=== PATIENT | male | born 1960 | race Caucasian/White ===

== ENCOUNTER → 2016-12-10 | Outpatient (CLI) | payer OTHER ==
[~2016-12-10] MED LIST: ASPCH81X PO; HYDR-5688 PO
== END | disposition home or self-care (01) ==
LOC: C.CPL 14:38
PROVIDERS: ATTEND Orthopaedic Surgery
DX: S83.241A Other tear of medial meniscus, current injury, right knee, initial encounter (principal); X58.XXXA Exposure to other specified factors, initial encounter; R00.1 Bradycardia, unspecified

== ENCOUNTER → 2016-12-16 | Day surgery (SDC) | payer OTHER ==
[2016-12-12 09:11] VITALS: Ht 188 cm; Wt 90.9 kg
[~2016-12-16] VITALS: Ht 188 cm; Wt 90.9 kg
[~2016-12-16] MED LIST changes: +ATROPINE SULFATE 0.1 MG/ML 5ML SYR IV PRN; +BUPIVACAINE 0.5 % 5 MG/1 ML PF 10ML VIAL ONE; +CEFAZOLIN 2000 MG/60 ML D5W IV SCH; +DEXAMETHASONE SOD INJ 4 MG/ML VIAL ONE; +EpINEphrine INJ 1MG/ML AMP 1 MG/ML AMP ONE; +FENTANYL CITRATE INJ 50 MCG/1 ML 2 ML VIAL IV PRN; +FENTANYL CITRATE INJ 50 MCG/1 ML 2 ML VIAL ONE; +KETOROLAC TROMETHAMINE 30 MG/ML VIAL IV. PRN; +KETOROLAC TROMETHAMINE 30 MG/ML VIAL ONE; +LABETALOL HCL IV 5 MG/ML 20ML IV PRN; +LACTATED RINGER'S 1000ML 1,000 ML IV SCH; +LIDOCAINE HCL 2% 2 ML VIAL (20MG/ML) ONE; +MIDAZOLAM HCL 1 MG/ML 2ML VIAL ONE; +ONDANSETRON INJ 2 MG/ML 2 ML VIAL IV PRN; +ONDANSETRON INJ 2 MG/ML 2 ML VIAL ONE; +OXYCODONE/ACETAMINOPHEN 5-325 TAB PO PRN; +PROPOFOL IV EMULSION 10 MG/ML 20 ML VIAL IV ONE; +ROPIVACAINE 0.5% 5 MG/ML 30 ML VIAL ONE; +SODIUM CHLORIDE 0.9% 1000ML 1,000 ML IV SCH
--- NOTE | 2016-12-16 09:51 | History & Physical Bridge - SC ---
H&P Re-Evaluation Bridge Note: I have examined the patient, reviewed the History & Physical and in the interval since the performance of the History & Physical I have noted the following changes of clinical significance: No changes noted
--- NOTE | 2016-12-16 11:07 | [facility] Post Operative Brief Note ---
Immediate Operative Summary Operative Date Dec 16, 2016. Pre-Operative Diagnosis Left Knee Medial Meniscal Tear Post-Operative Diagnosis Same Procedure(s) Performed Left Knee Arthroscopy, Partial Medial Meniscectomy Surgeon Dr. Hickman Sales Representative [employer] Surgeon(s) Jorge Smith PA-C Estimated Blood Loss None Findings ABOVE Specimens None Anesthesia LMA Complication(s) None Disposition Recovery Room / PACU
--- NOTE | 2016-12-16 11:21 | Discharge Instructions-SurgCtr ---
Discharge Instructions Date of Service Dec 16, 2016. Visit Reason for Visit: Left Knee Acute Medial Meniscal Tear, Pain Discharge Discharge Diagnosis / Problem: SAME ABOVE Discharge Goals Goal(s): Decrease discomfort, Improve function Medications Stopped Medications Name(s): ASA 81mg stopped 12/09 Activity Recommendations Activity Limitations: as noted below Lifting Limitations: gradually increase as tolerated Exercise/Sports Limitations: until after follow-up appointment Shower/Bathe: tomorrow Weightbearing Status: Left weightbearing (as tolerated) Anesthesia . Post Anesthesia Instructions: If you have had General Anesthesia or IV Sedation: * Do not drive today. * Resume driving when surgeon permits. * Do not make important decisions or sign legal documents today. * Call surgeon for: 1. Temperature elevations greater than 101 degrees F. 2. Uncontrollable pain. 3. Excessive bleeding. 4. Persistent nausea and vomiting. 5. Medication intolerance (nausea, vomiting or rash). * For nausea and vomiting use only clear liquids such as: tea, soda, bouillon until nausea subsides, then gradually increase diet as tolerated. * If you have any concerns or questions, call your surgeon's office. If physician is unavailable and it is an emergency, call 911 or go to the nearest emergency room. . Diet Recommendations Home Diet: resume previous diet Procedures Procedures Performed: Left Knee Arthroscopy, Partial Medial Meniscectomy Pending Studies Studies pending at discharge: no Medical Emergencies . Who to Call and When: Medical Emergencies: If at any time you feel your situation is an emergency, please call 911 immediately. . Non-Emergent Contact Non-Emergency issues call your: Primary Care Provider . . "Provider Documentation" section prepared by Albino Smith.
[2016-12-16 12:07] VITALS: TEMP 36.5
[2016-12-16 12:27] VITALS: BP 131/81; PULSE 60; O2SAT 98
--- NOTE | 2016-12-16 12:31 | OPERATIVE REPORT ---
DATE OF OPERATION: 12/16/2016 PREOPERATIVE DIAGNOSIS: Posterior horn medial meniscus tear left knee. POSTOPERATIVE DIAGNOSES: Complex tear posterior horn medial meniscus, left knee. PROCEDURE: Left knee arthroscopy, partial medial meniscectomy. SURGEON: Dr. Hickman. JEWELRY STORE MANAGER: Albino Smith PA-C. ANESTHESIOLOGIST: Dr. Tena. ANESTHESIA: LMA. DRAINS: None. COMPLICATIONS: None. CONDITION: The patient tolerated the procedure well and returned to recovery room in apparent satisfactory condition. INDICATIONS FOR SURGERY: Michele is a 56-year-old male who injured his knee 6 weeks back. He has had pain and discomfort off and on. MRI, physical exam and history are consistent with medial meniscus tear and elected to go ahead and proceed with surgery. Procedure, expected outcomes and side effects were all explained in detail. PROCEDURE: The patient was taken to the OR at which time he was placed supine on the operating table, put to sleep by the anesthesia department. Examination of left knee was performed. Ligamentous bourgeois it was stable. Went ahead and prepped and draped in usual sterile fashion. Began arthroscopic examination in the anteromedial and anterolateral portals. We found a complex tear of the posterior horn of the medial meniscus. We came in with upbiting scissors and full radius resector and trimmed it back to a stable rim. There were some slight changes on the articular surface. ACL, lateral compartment were fine. The patellofemoral joint had a little bit of synovitis but the remaining part articular surface here looked good. The knee then was copiously irrigated. All cannulas were removed. Portals were closed with 4-0 nylon sutures. Ropivacaine 30 mL, 10 mg of Toradol, 1 mL epinephrine was placed in the knee joint. Placed a sterile dressing of Xeroform, ABD, Sof-Rol, and Ankush bandage and returned back to recovery room in apparent satisfactory condition. SURGICAL FINDINGS: Include a complex tear of the posterior horn of the medial meniscus. I attest to the content of the Intraoperative Record and any orders documented therein. Any exceptio ns are noted below.
--- NOTE | 2016-12-16 12:32 | Anesthesia Progress Nt - [facility] ---
Anesthesia Post Op Note Date & Time Dec 16, 2016 at 12:32 Vital Signs Pain Intensity: 2 Vital Signs Past 12 Hours Date Time Temp Pulse Resp B/P Pulse Ox O2 Delivery O2 Flow Rate FiO2 12/16/16 12:27 60 16 131/81 98 Room Air 12/16/16 12:07 36.5 53 16 117/72 97 Room Air 12/16/16 12:00 119/74 12/16/16 11:57 60 9 12/16/16 11:57 60 9 95 12/16/16 11:56 63 10 12/16/16 11:56 63 10 95 12/16/16 11:55 36.6 59 12 112/77 96 Room Air 12/16/16 11:55 112/77 12/16/16 11:51 61 1 95 12/16/16 11:51 64 1 12/16/16 11:50 115/74 12/16/16 11:46 60 18 12/16/16 11:46 61 18 96 12/16/16 11:45 116/72 12/16/16 11:41 55 12 100 12/16/16 11:41 56 12 12/16/16 11:40 112/74 12/16/16 11:36 58 9 98 12/16/16 11:36 57 9 12/16/16 11:35 116/75 12/16/16 11:31 60 13 100 12/16/16 11:31 60 13 12/16/16 11:30 110/75 12/16/16 11:26 63 12 12/16/16 11:26 63 12 100 12/16/16 11:25 111/76 12/16/16 11:21 61 11 99 12/16/16 11:21 61 11 12/16/16 11:20 118/76 12/16/16 11:16 64 4 12/16/16 11:16 36.6 67 16 116/69 98 Mask 8 12/16/16 11:16 63 4 116/69 98 12/16/16 09:53 36.5 77 18 136/87 96 Room Air Notes Mental Status: alert / awake / arousable, participated in evaluation Pt Amnestic to Procedure: Yes Nausea / Vomiting: adequately controlled Pain: adequately controlled Airway Patency, RR, SpO2: stable & adequate BP & HR: stable & adequate Hydration State: stable & adequate Anesthetic Complications: no major complications apparent
== END | disposition home or self-care (01) ==
LOC: X.SURG 08:43
PROVIDERS: ATTEND Orthopaedic Surgery
DX: S83.232A Complex tear of medial meniscus, current injury, left knee, initial encounter (principal); X58.XXXA Exposure to other specified factors, initial encounter

== ENCOUNTER 2017-05-08 10:07 | Emergency (ER) | payer OTHER ==
[~2017-05-08] VITALS: Ht 188 cm; Wt 94.2 kg
[~2017-05-08 10:07] MED LIST changes: -ATROPINE SULFATE 0.1 MG/ML 5ML SYR IV PRN; -BUPIVACAINE 0.5 % 5 MG/1 ML PF 10ML VIAL ONE; -CEFAZOLIN 2000 MG/60 ML D5W IV SCH; -DEXAMETHASONE SOD INJ 4 MG/ML VIAL ONE; -EpINEphrine INJ 1MG/ML AMP 1 MG/ML AMP ONE; -FENTANYL CITRATE INJ 50 MCG/1 ML 2 ML VIAL IV PRN; -FENTANYL CITRATE INJ 50 MCG/1 ML 2 ML VIAL ONE; -KETOROLAC TROMETHAMINE 30 MG/ML VIAL IV. PRN; -KETOROLAC TROMETHAMINE 30 MG/ML VIAL ONE; -LABETALOL HCL IV 5 MG/ML 20ML IV PRN; -LACTATED RINGER'S 1000ML 1,000 ML IV SCH; -LIDOCAINE HCL 2% 2 ML VIAL (20MG/ML) ONE; -MIDAZOLAM HCL 1 MG/ML 2ML VIAL ONE; -ONDANSETRON INJ 2 MG/ML 2 ML VIAL IV PRN; -ONDANSETRON INJ 2 MG/ML 2 ML VIAL ONE; -OXYCODONE/ACETAMINOPHEN 5-325 TAB PO PRN; -PROPOFOL IV EMULSION 10 MG/ML 20 ML VIAL IV ONE; -ROPIVACAINE 0.5% 5 MG/ML 30 ML VIAL ONE; -SODIUM CHLORIDE 0.9% 1000ML 1,000 ML IV SCH
[2017-05-08 10:10] VITALS: TEMP 36.9; Ht 188 cm; Wt 94.2 kg
[2017-05-08 10:51] LABS: URINE APPEARANCE CLEAR (CLEAR); URINE BILIRUBIN NEG (NEG); URINE COLOR YELLOW; URINE NITRITE NEG (NEG); URINE PH 5.5 (4.5-7.5); URINE SPECIFIC GRAVITY 1.021 (1.000-1.030); UROBILINOGEN NEG (NEG)
[2017-05-08 10:56] LABS: MANUAL MICROSCOPIC REQUIRED? NO; REVIEW REQ? NO
[2017-05-08] MEDS ORDERED: SODIUM CHLORIDE 0.9% 1000ML 1,000 ML IV STA (10:56)
[2017-05-08 11:02] LABS: BASO % 1.1 %; BASO ABS # 0.04 K/uL (0-0.2); COMPLETE YES; EOS % 1.4 %; HEMATOCRIT 41.5 % (42-52); LYMPH % 38.5 %; LYMPH ABS # 1.36 K/uL (1.2-3.4); MEAN CELL VOLUME 87.6 fL (80-100); MEAN CORPUSCULAR HEMOGLOBIN 29.3 pg (25-34); MEAN CORPUSCULAR HGB CONC 33.5 g/dl (32-36); PLATELET COUNT 199 K/uL (130-400); RED BLOOD COUNT 4.74 M/uL (4.7-6.1); WHITE BLOOD COUNT 3.53 K/uL (4.8-10.8)
[2017-05-08] MEDS ORDERED: OPTIRAY 320 IV PRN (11:15)
[2017-05-08 11:17] LABS: BUN/CREATININE RATIO 13.7 (10-20); CALCIUM 8.4 mg/dl (8.5-10.1); CREATININE 0.91 mg/dl (0.60-1.40); POTASSIUM 3.8 mmol/L (3.5-5.1)
[2017-05-08 12:25] LABS: LYME DISEASE AB IGG NEG (NEG); LYME DISEASE AB IGM NEG (NEG)
[2017-05-08] MEDS ORDERED: CHOLESTYRAMINE LIGHT 4 GM PKT PO STA (14:38)
--- NOTE | 2017-05-08 14:44 | DIAGNOSTIC IMAGING REPORT ---
ABD/PELVIS IV AND ORAL CONT CT DOSE: 907.12 mGycm HISTORY: Nausea. Bowel change. FINDINGS: nodular pleural-based focus versus focal atelectasis posterior right gastric angle. Lung bases otherwise are clear. Liver spleen and pancreas are uniform. Gallbladder is negative for distention. Kidneys enhance uniformly. 1.5 cm lower pole left renal cyst. There is no evidence for hydronephrosis. The bowel pattern is considered nonobstructive. There is no significant wall thickening. There are no pericolonic infiltrative changes. The appendix is normal. There are no small bowel obstructive changes. There is no significant abdominal pelvic or inguinal adenopathy. Pt c/o diffuse diarrhea TECHNIQUE: Multiaxial CT images of the abdomen and pelvis were performed following the use of intravenous and oral contrast. A dose lowering technique was utilized adhering to the principles of ALARA. COMPARISON STUDY: None. IMPRESSION: 1. 11 mm nodular density right posterior gastric angle versus round atelectasis. 2. Small left renal cyst. 3. Study is otherwise negative. Please refer to below summary of Fleischner criteria recommendations for follow-up of incidental CT nodules (Michael Bell, Guidelines for management of small pulmonary nodules detected on CT scans: A statement from the Fleischner Society, Radiology 237: [phone].) SOLID NODULES Solitary nodule size: <6 mm * low risk patients: no follow-up needed * high risk patients: optional CT at 12 months Solitary nodule size: 6-8 mm * low risk patients: follow-up at 6-12 months, then consider further follow-up at 18-24 months * high risk patients: initial follow-up CT at 6-12 months and then at 18-24 months if no change Solitary nodule size: >8 mm * either low or high risk patients - consider follow-up CT at 3 months, and/or CT-PET, and/or biopsy Multiple nodules size: <6 mm * low risk patients: no routine follow-up * high risk patients: optional CT at 12 months Multiple nodules size: 6-8 mm * low risk patients: follow-up at 3-6 months, then consider further follow-up at 18-24 months * high risk patients: follow-up at 3-6 months, then at 18-24 months if no change Multiple nodules size: >8 mm * low risk patients: follow-up at 3-6 months, then consider further follow-up at 18-24 months * high risk patients: follow-up at 3-6 months, then at 18-24 months if no change Note: newly detected indeterminate nodule in persons 35 years of age or older. * Low risk patients: minimal or absent history of smoking and/or other known risk factors * high risk patients: history of smoking or of other known risk factors (e.g. first degree relative with lung cancer, or exposure to asbestos, radon, uranium) * if a nodule up to 8 mm is partly solid or is ground glass further follow-up is required after 24 months to exclude possible slow growing adenocarcinoma (SAM) SUBSOIL NODULES Solitary pure ground-glass nodule * nodule size <6 mm - no CT follow-up required * nodule size >=6 mm - follow-up CT at 6-12 months, then every 2 years until 5 years Solitary part-solid nodule * nodule size <6 mm - no CT follow-up required * nodule size >=6 mm - follow-up CT at 3-6 months. If unchanged, and solid component remains <6 mm, then annual follow-up for 5 years Multiple subsolid nodules * nodule size <6 mm - follow-up CT at 3-6 months, consider further follow-up at 2 and 4 years if stable * nodule size >=6 mm - follow-up CT at 3-6 months, subsequent management based on the most suspicious nodule(s) The above report was generated using voice recognition software. It may contain grammatical, syntax or spelling errors. Electronically signed by: Sumit Rosa M.D. 05/08/2017 2:43 PM Dictated Date/Time: 05/08/2017 2:37 PM
[2017-05-08 14:57] VITALS: BP 136/84; PULSE 55; O2SAT 99
--- NOTE | 2017-05-12 01:23 | EMERGENCY ROOM VISIT NOTE ---
History Report prepared by Yolanda: Kelsi Page Under the Supervision of: Dr. Brendon Saenz M.D. First contact with patient: 10:19 Chief Complaint: GI ASSESSMENT Stated Complaint: INTESTINAL PAIN/BLOATING, WT LOSS 15 X 3 WEEKS Nursing Triage Summary: stomach issues for 3 weeks loss of 15 pounds saw pcp, no answers pt has had diarrhea pt has gas, indigestion nausea History of Present Illness The patient is a 56 year old male who presents to the Emergency Room with complaints of constant diarrhea for the past 3 weeks. He has been having diarrhea every 2 hours. For the last 3 days, he has mostly been passing a yellow /edmonds mucous. He has seen his PCP and had stool testing and blood work 2 times. He was also tested for Giardia. He reports abdominal bloating and pain. His pain increases when he eats and when he lays on his left side. He has had a decreased appetite. He notes that he has lost 15 lbs in 3 weeks. He has had increased thirst recently and has been drinking a gallon of water a day. He denies any vomiting, blood in his stool, cough, tachycardia, or dysuria. He notes that his symptoms began after he went camping. He and his ate and drank all the same foods. She has not had any symptoms. He notes that his 2 sisters have recently passed from GI related cancers. He still has his gallbladder. He does not smoke. He denies any recent antibiotic use. He denies any chronic medical problems besides low back pain. He denies any alcohol use for the last 3 weeks. He had a colonoscopy last year and an endoscopy. He is scheduled to get a colonoscopy every 3 years. Source of History: patient Onset: 3 weeks Position: other (global) Quality: other (diarrhea) Timing: constant Associated Symptoms: + abdominal pain, No cough, No vomiting, No hematochezia, No urinary symptoms Note: Pt reports decreased appetite, weight loss, increased thirst. Pt denies tachycardia. Review of Systems See HPI for pertinent positives & negatives. A total of 10 systems reviewed and were otherwise negative. Past Medical & Surgical Medical Problems: (1) Lactose intolerance Family History Cancer Social History Smoking Status: Never Smoker Marital Status: Housing Status: lives with family Occupation Status: employed Current/Historical Medications No Active Prescriptions or Reported Meds Allergies Coded Allergies: BEE STING (Verified Allergy, Mild, SWEATING AND LIGHTHEADED, 05/08/17) NO KNOWN DRUG ALLERGIES (Verified Allergy, Unknown, ., 05/08/17) Physical Exam Vital Signs Date Time Temp Pulse Resp B/P (MAP) Pulse Ox O2 Delivery O2 Flow Rate FiO2 05/08/17 14:57 55 20 136/84 99 Room Air 05/08/17 13:52 46 20 119/83 98 Room Air 05/08/17 11:11 53 20 119/77 96 Room Air 05/08/17 10:10 36.9 66 20 127/84 97 Room Air Physical Exam GENERAL: Patient is a healthy-appearing well-nourished male HEAD: Normocephalic atraumatic EYES: Ocular movements intact pupils equal and react to light OROPHARYNX mucous membranes are moist no exudates present no erythema or edema present NECK: Supple no nuchal rigidity CHEST: Good equal expansion LUNGS: Clear and equal to auscultation CARDIAC: Normal S1 and S2 ABDOMEN: Soft nontender no guarding BACK: No CVA tenderness EXTREMITIES: No pain upon palpation normal muscle strength in all groups no clubbing cyanosis or edema NEURO: Patient is following commands and answering questions appropriately. Alert and oriented x3 Cranial Nerves 2-12 grossly intact Medical Decision & Procedures ER Provider Diagnostic Interpretation: Radiology results as stated below per my review and radiologist interpretation: ABD/PELVIS IV AND ORAL CONT CT DOSE: 907.12 mGycm HISTORY: Nausea. Bowel change. FINDINGS: nodular pleural-based focus versus focal atelectasis posterior right gastric angle. Lung bases otherwise are clear. Liver spleen and pancreas are uniform. Gallbladder is negative for distention. Kidneys enhance uniformly. 1.5 cm lower pole left renal cyst. There is no evidence for hydronephrosis. The bowel pattern is considered nonobstructive. There is no significant wall thickening. There are no pericolonic infiltrative changes. The appendix is normal. There are no small bowel obstructive changes. There is no significant abdominal pelvic or inguinal adenopathy. Pt c/o diffuse diarrhea TECHNIQUE: Multiaxial CT images of the abdomen and pelvis were performed following the use of intravenous and oral contrast. A dose lowering technique was utilized adhering to the principles of ALARA. COMPARISON STUDY: None. IMPRESSION: 1. 11 mm nodular density right posterior gastric angle versus round atelectasis. 2. Small left renal cyst. 3. Study is otherwise negative. Please refer to below summary of Fleischner criteria recommendations for follow-up of incidental CT nodules (Michael Bell, Guidelines for management of small pulmonary nodules detected on CT scans: A statement from the Fleischner Society, Radiology 237: [phone].) SOLID NODULES Solitary nodule size: <6 mm * low risk patients: no follow-up needed * high risk patients: optional CT at 12 months Solitary nodule size: 6-8 mm * low risk patients: follow-up at 6-12 months, then consider further follow-up at 18-24 months * high risk patients: initial follow-up CT at 6-12 months and then at 18-24 months if no change Solitary nodule size: >8 mm * either low or high risk patients - consider follow-up CT at 3 months, and/or CT-PET, and/or biopsy Multiple nodules size: <6 mm * low risk patients: no routine follow-up * high risk patients: optional CT at 12 months Multiple nodules size: 6-8 mm * low risk patients: follow-up at 3-6 months, then consider further follow-up at 18-24 months * high risk patients: follow-up at 3-6 months, then at 18-24 months if no change Multiple nodules size: >8 mm * low risk patients: follow-up at 3-6 months, then consider further follow-up at 18-24 months * high risk patients: follow-up at 3-6 months, then at 18-24 months if no change Note: newly detected indeterminate nodule in persons 35 years of age or older. * Low risk patients: minimal or absent history of smoking and/or other known risk factors * high risk patients: history of smoking or of other known risk factors (e.g. first degree relative with lung cancer, or exposure to asbestos, radon, uranium) * if a nodule up to 8 mm is partly solid or is ground glass further follow-up is required after 24 months to exclude possible slow growing adenocarcinoma (SAM) SUBSOIL NODULES Solitary pure ground-glass nodule * nodule size <6 mm - no CT follow-up required * nodule size >=6 mm - follow-up CT at 6-12 months, then every 2 years until 5 years Solitary part-solid nodule * nodule size <6 mm - no CT follow-up required * nodule size >=6 mm - follow-up CT at 3-6 months. If unchanged, and solid component remains <6 mm, then annual follow-up for 5 years Multiple subsolid nodules * nodule size <6 mm - follow-up CT at 3-6 months, consider further follow-up at 2 and 4 years if stable * nodule size >=6 mm - follow-up CT at 3-6 months, subsequent management based on the most suspicious nodule(s) The above report was generated using voice recognition software. It may contain grammatical, syntax or spelling errors. Electronically signed by: Sumit Rosa M.D. 05/08/2017 2:43 PM Dictated Date/Time: 05/08/2017 2:37 PM Laboratory Results 05/08/17 10:50 Red Blood Count 4.74, Mean Corpuscular Volume 87.6, Mean Corpuscular Hemoglobin 29.3, Mean Corpuscular Hemoglobin Concent 33.5, Mean Platelet Volume 9.0, Neutrophils (%) (Auto) 48.0, Lymphocytes (%) (Auto) 38.5, Monocytes (%) (Auto) 11.0, Eosinophils (%) (Auto) 1.4, Basophils (%) (Auto) 1.1, Neutrophils # (Auto ) 1.69, Lymphocytes # (Auto) 1.36, Monocytes # (Auto) 0.39, Eosinophils # (Auto ) 0.05, Basophils # (Auto) 0.04 05/08/17 10:50 Test 05/08/17 10:25 05/08/17 10:50 05/08/17 13:50 Urine Color YELLOW Urine Appearance CLEAR (CLEAR) Urine pH 5.5 (4.5-7.5) Urine Specific [place] 1.021 (1.000-1.030) Urine Protein NEG (NEG) Urine Glucose (UA) NEG (NEG) Urine Ketones NEG (NEG) Urine Occult Blood NEG (NEG) Urine Nitrite NEG (NEG) Urine Bilirubin NEG (NEG) Urine Urobilinogen NEG (NEG) Urine Leukocyte Esterase NEG (NEG) White Blood Count 3.53 K/uL (4.8-10.8) Red Blood Count 4.74 M/uL (4.7-6.1) Hemoglobin 13.9 g/dL (14.0-18.0) Hematocrit 41.5 % (42-52) Mean Corpuscular Volume 87.6 fL (80-100) Mean Corpuscular Hemoglobin 29.3 pg (25-34) Mean Corpuscular Hemoglobin Concent 33.5 g/dl (32-36) Platelet Count 199 K/uL (130-400) Mean Platelet Volume 9.0 fL (7.4-10.4) Neutrophils (%) (Auto) 48.0 % Lymphocytes (%) (Auto) 38.5 % Monocytes (%) (Auto) 11.0 % Eosinophils (%) (Auto) 1.4 % Basophils (%) (Auto) 1.1 % Neutrophils # (Auto) 1.69 K/uL (1.4-6.5) Lymphocytes # (Auto) 1.36 K/uL (1.2-3.4) Monocytes # (Auto) 0.39 K/uL (0.11-0.59) Eosinophils # (Auto) 0.05 K/uL (0-0.5) Basophils # (Auto) 0.04 K/uL (0-0.2) RDW Standard Deviation 40.6 fL (36.4-46.3) RDW Coefficient of Variation 12.6 % (11.5-14.5) Immature Granulocyte % (Auto) 0.0 % Immature Granulocyte # (Auto) 0.00 K/uL (0.00-0.02) Anion Gap 4.0 mmol/L (3-11) Est Creatinine Clear Calc Drug Dose 106.7 ml/min Estimated GFR () 109.6 Estimated GFR (Non- 94.5 BUN/Creatinine Ratio 13.7 (10-20) Calcium Level 8.4 mg/dl (8.5-10.1) Total Bilirubin 0.8 mg/dl (0.2-1) Direct Bilirubin 0.2 mg/dl (0-0.2) Aspartate Amino Transf (AST/SGOT) 18 U/L (15-37) Alanine Aminotransferase (ALT/SGPT) 25 U/L (12-78) Alkaline Phosphatase 55 U/L (45-117) Total Protein 6.9 gm/dl (6.4-8.2) Albumin 3.8 gm/dl (3.4-5.0) Lipase 171 U/L (73-393) Lyme Disease IgG Antibody NEG (NEG) Lyme Disease IgM Antibody NEG (NEG) Date/Time Source Procedure Growth Status 05/08/17 13:50 Stool C.difficile Toxin B Gene (PCR) - Final No C. difficile toxin B gene detected Complete Labs reviewed by ED physician. Medications Administered Medications (Trade) Dose Ordered Sig/Flor Route Start Time Stop Time Status Last Admin Dose Admin Sodium Chloride 1,000 ml @ 999 mls/hr Q1H1M STAT IV 05/08/17 10:56 05/08/17 11:56 DC 05/08/17 11:10 999 MLS/HR Cholestyramine Resin (Questran Powder Light) 4 gm NOW STAT PO 05/08/17 14:38 05/08/17 14:39 DC 05/08/17 14:56 4 GM ED Course 1019: At this time, the patient was evaluated by the medical student. The students findings were discussed with me. We discussed a possible treatment plan and differential diagnoses for the patient. 1049: Past medical records reviewed. The patient was evaluated in room C1B. A complete history and physical examination was performed. 1056: NSS 1000 ml @ 999 mls/hr IV. 1438: Cholestyramine Resin 4 gm PO. Medical Decision Differential diagnosis: Etiologies such as appendicitis, diverticulitis, PUD, biliary pathology, UTI, pancreatitis, obstruction, mesenteric ischemia, aortic pathology, infections, inflammatory bowel disease, renal colic, as well as others were entertained. This is a 56-year-old male who presents emergency department with severe diarrhea that is been ongoing for the past 3 weeks. The patient has a close family history of both: And stomach cancer. A stool sample was obtained which did not show any acute process. The patient was also sent for CAT scan of the abdomen and pelvis. This did not show any acute process therefore I did discuss the case with the on-call [facility] neurologist who will try and get the patient into the office [facility]. Patient and family were in agreement with treatment plan. Impression Primary Impression: Diarrhea Scribe Attestation The scribe's documentation has been prepared under my direction and personally reviewed by me in its entirety. I confirm that the note above accurately reflects all work, treatment, procedures, and medical decision making performed by me. Departure Information Dispostion Home / Self-Care Prescriptions No Active Prescriptions or Reported Meds Referrals Fallon Coppola, (PCP) Patient Instructions My [facility] [address] Problem Qualifiers Primary Impression: Diarrhea Diarrhea type: unspecified type Qualified Codes: R19.7 - Diarrhea, unspecified
[2017-05-18 19:36] LABS: EHRLICHIA CHAFF IGG AB <1:64 (<1:64); EHRLICHIA CHAFF IGM AB <1:20 (<1:20)
== END 2017-05-08 15:20 | disposition home or self-care (01) ==
LOC: C.EDB 10:09 → C.EDC 15:20
DX: R19.7 Diarrhea, unspecified (principal); R10.9 Unspecified abdominal pain; R14.0 Abdominal distension (gaseous); R63.4 Abnormal weight loss; E73.9 Lactose intolerance, unspecified; Z80.0 Family history of malignant neoplasm of digestive organs

== ENCOUNTER → 2017-06-01 | Outpatient (CLI) | payer OTHER ==
--- NOTE | 2017-06-01 14:35 | DIAGNOSTIC IMAGING REPORT ---
PET/CT CLINICAL HISTORY: Solitary pulmonary nodule. TECHNIQUE: A PET/CT was performed from the skull base through the upper thighs following intravenous injection of 14.4 mCi of F 18 FDG IV. The injection was performed at 7:08 AM on June 01, 2017 and imaging began at 8:04 AM on June 01, 2017. Unenhanced CT was performed for attenuation correction purposes and anatomic localization. COMPARISON STUDY: CT of the abdomen and pelvis May 08, 2017. FINDINGS: Head and neck: No abnormal FDG uptake is identified within the neck. There is no cervical lymphadenopathy. Chest: No thoracic lymphadenopathy is present. Note is again made of a 1.3 cm subpleural nodular opacity within the right lower lobe shown on image 118 which were shown on CT of May 08, 2017. This has no significant FDG uptake. The SUV max is 1.4 which is similar to background soft tissues. Otherwise, the lungs are clear on this PET/CT. Abdomen and Pelvis: No abnormal FDG uptake is identified within the abdomen or pelvis. There is no lymphadenopathy. Incidental note is made of a cyst within the lower pole of the left kidney. Musculoskeletal: No suspicious skeletal uptake is identified. IMPRESSION: Minimal FDG uptake within the 1.3 cm subpleural nodular opacity within the right lower lobe. The degree of FDG uptake is similar to that of background soft tissues with an SUV max of 1.4. A benign etiology such as scarring or atelectasis is favored. A low grade neoplasm is considered less likely however a follow-up CT in 6 months to ensure stability is recommended. Electronically signed by: Derrek Cat M.D. 06/01/2017 2:33 PM Dictated Date/Time: 06/01/2017 9:46 AM
== END | disposition home or self-care (01) ==
LOC: C.PET 06:53
PROVIDERS: ATTEND Internal Medicine Pulmonary Disease
DX: R91.1 Solitary pulmonary nodule (principal)

== ENCOUNTER → 2017-06-02 | Outpatient (CLI) | payer OTHER ==
[~2017-06-02] MED LIST changes: -ASPCH81X PO; -HYDR-5688 PO; +OPTIRAY 320 IV PRN
--- NOTE | 2017-06-02 08:05 | DIAGNOSTIC IMAGING REPORT ---
CT OF THE CHEST WITH IV CONTRAST CLINICAL HISTORY: Solitary pulmonary nodule COMPARISON STUDY: PET/CT scan dated 06/01/2017, CT scan of the abdomen and pelvis dated 05/08/2017 TECHNIQUE: Following the IV administration of 92 mL of Optiray-320, CT of the thorax was performed from the thoracic inlet to the lung bases. Images are reviewed in the axial, sagittal, and coronal planes. IV contrast was administered without complication. A dose lowering technique was utilized adhering to the principles of ALARA. CT DOSE: 360.08 mGy.cm FINDINGS: Thyroid: Imaged portions of the thyroid gland are normal in appearance. Thoracic aorta: The thoracic aorta is normal in course and caliber, noting standard 3-vessel arch anatomy. No aneurysm or dissection is seen. Pulmonary vasculature: The pulmonary trunk is normal in caliber. There are no central filling defects identified to suggest pulmonary embolus. Note that this examination was not protocoled for the evaluation of pulmonary emboli. HEART: The heart is normal in size and configuration, without pericardial effusion. Lungs and pleural spaces: No pleural effusions are visualized. There is a stable 13 mm subpleural nodular opacity within the right lower lobe. The appearance favors scar or atelectatic change. This was FDG negative. As was stated the prior report, a 6 month follow-up would seem prudent. No additional pulmonary lesions are evident Mediastinum: There is no mediastinal lymphadenopathy. Mary Ellen: Clear. Axilla: Clear. Upper abdomen: Partially visualized upper abdominal viscera is within normal limits. Skeletal structures: There are no lytic or blastic osseous lesions. IMPRESSION: 1. Stable 13 mm pleural-based nodular opacity within the right lower lobe. The appearance favors scar or atelectatic change. As was stated in the prior report a 6 month follow-up study would seem prudent. Electronically signed by: Jas Venegas M.D. 06/02/2017 8:03 AM Dictated Date/Time: 06/02/2017 7:58 AM
== END | disposition home or self-care (01) ==
LOC: C.CTS 07:41
PROVIDERS: ATTEND Internal Medicine Pulmonary Disease
DX: R91.1 Solitary pulmonary nodule (principal)

== ENCOUNTER → 2017-12-09 | Outpatient (CLI) | payer OTHER ==
--- NOTE | 2017-12-09 09:05 | DIAGNOSTIC IMAGING REPORT ---
CT (CHEST) THORAX WITH CLINICAL HISTORY: 57 years-old Male presenting with R91.1 Pulmonary noduleappt sched 12-09-17 @9:00 am PT AWARE/S. TECHNIQUE: Multidetector CT imaging of the chest was performed after the administration of intravenous contrast. IV contrast: 94 mL of Optiray. A dose lowering technique was used consistent with the principles of ALARA (as low as reasonably achievable). COMPARISON: 06/02/2017. CT DOSE (mGy.cm): The estimated cumulative dose is 300.48 mGy.cm. FINDINGS: Investor Relations Manager topogram: Unremarkable. On soft tissue windows, normal thyroid and thoracic inlet. Bilateral gynecomastia. No axillary, supraclavicular, hilar, or mediastinal lymphadenopathy. Normal aorta. Normal heart size. No pericardial or pleural effusion. Upper abdomen normal. On lung windows, minimal dependent changes likely atelectasis. Bandlike peripheral nodular consolidation in the lateral basal right lower lobe is unchanged No other focal nodule or infiltrate. Airways patent. On bone windows, degenerative changes of the spine. IMPRESSION: 1. Stable bandlike peripheral nodular consolidation in the lateral basal right lower lobe most consistent with cicatrizing atelectasis. No new pulmonary nodule. Electronically signed by: Angel Contreras M.D. 12/09/2017 9:03 AM Dictated Date/Time: 12/09/2017 8:58 AM
== END | disposition home or self-care (01) ==
LOC: C.CTS 08:43
PROVIDERS: ATTEND Physician Assistant
DX: R91.1 Solitary pulmonary nodule (principal)